=== PATIENT | female | born 1995 | race Caucasian/White ===

== ENCOUNTER 2018-02-24 19:38 | Emergency (ER) | payer OTHER, BC ==
[2018-02-24] MEDS: LIDOCAINE 1% MDV 20ML VIAL IM (20:54)
[2018-02-24] MEDS: ADACEL/BOOSTRIX VACCINE (DIPHTH/PERTUSS/ACELL/TETANUS)0.5ML SYR (90715) IM (21:45)
== END 2018-02-24 22:06 | disposition home or self-care (01) ==
LOC: M ED 19:38
DX: S61.412A Laceration without foreign body of left hand, initial encounter (principal); W26.8XXA Contact with other sharp object(s), not elsewhere classified, initial encounter; Y92.018 Other place in single-family (private) house as the place of occurrence of the external cause
CPT/HCPCS: 90715